=== PATIENT | female | born 1970 | race Caucasian/White ===

== ENCOUNTER 2021-09-07 03:19 | Emergency (ER) | payer BC ==
[~2021-09-07] VITALS: Ht 167.6 cm; Wt 66.7 kg
[2021-09-07 06:00] VITALS: BP 111/72
[2021-09-07] MEDS ORDERED: cefTRIAXone 1GM/50ML D5W 50 ML IV ONE (07:00)
[2021-09-07] MEDS ORDERED: AZIT500T66 PO (07:25)
[2021-09-07] MEDS ORDERED: DEXA4TAB PO (07:25)
== END 2021-09-07 08:31 | disposition home or self-care (01) ==
LOC: ER 03:19 → EDBD 03:19 → ER 08:31
DX: U07.1 COVID-19 (principal)
CPT/HCPCS: 36415; 71045; 87426; 96365; 99284; J0696